=== PATIENT | male | born 1955 | race Caucasian/White ===

== ENCOUNTER 2018-12-01 14:55 | Emergency (ER) | payer OTHER, SELFPAY ==
[2018-12-01 14:59] VITALS: BP 161/83; PULSE 83; RESP 14; TEMP 37.4; O2SAT 99
[2018-12-01 15:31] LABS: Bacteria Urine None Seen
[2018-12-01 15:54] LABS: RBC Urine 30-100/HPF (0-5/HPF)
[2018-12-01 15:55] LABS: Amorphous Sediment Urine 1+; Culture Indicated Urine Cult Not Indicated; Squamous Epithelial Cell Urine 0-1 /HPF; WBC Urine 1-5/HPF (0-5/HPF)
--- NOTE | 2018-12-01 17:04 | ED_ITS ---
HPI - Abdominal Pain <BROCK Sanchez - Last Filed: 12/01/18 22:10> General Chief Complaint: Abdominal Pain Stated Complaint: PAIN ON LOWER LEFT SIDE OF BACK PEEING MORE Time Seen by Provider: 12/01/18 16:50 Source: patient Mode of arrival: ambulatory Limitations: no limitations History of Present Illness HPI narrative: 63-year-old healthy male that is a nonsmoker here for complaint of pain to left flank area over the past week. He also reports having some mild dysuria. He denies any fevers or chills. No nausea vomiting. Last bowel movement was earlier today was unremarkable. He denies any abdominal pain. He denies any stressors or relievers of his pain. He is concerned for urinary tract infection. He states that he is eating and drinking well. No other concerns or complaints at this time. He denies any hematuria. Related Data Previous Rx's Medication Instructions Recorded nitrofurantoin monohyd/m-cryst 100 mg PO BID #14 cap 12/01/18 [Macrobid] Allergies Allergy/AdvReac Type Severity Reaction Status Date / Time No Known Drug Allergies Allergy Verified 12/01/18 15:02 Review of Systems <BROCK Sanchez - Last Filed: 12/01/18 22:10> Constitutional Denies chills, Denies fever(s), Denies lethargy and Denies weakness Eyes Denies change in vision, Denies eye discharge, Denies irritation and Denies loss of vision ENT Ears, Nose, Mouth, and Throat: Denies change in voice, Denies neck pain and Denies sore throat Cardiovascular Denies chest pain, Denies irregular heart rhythm, Denies lightheadedness, Denies palpitations, Denies dyspnea, Denies dyspnea on exertion and Denies orthopnea Respiratory Denies cough, Denies dyspnea, Denies dyspnea on exertion and Denies wheezing Gastrointestinal Gastrointestinal: Denies abdominal pain, Denies change in bowel habits, Denies diarrhea, Denies nausea and Denies vomiting Genitourinary Reports dysuria and Reports flank pain Musculoskeletal Denies neck pain Integumentary/Breasts Denies pruritus, Denies erythema, Denies rash and Denies wounds Neurologic Denies confusion, Denies loss of vision and Denies weakness Psychiatric Denies anxiety, Denies confusion, Denies depression, Denies homicidal ideation and Denies suicidal ideation Endocrine Denies palpitations Hematologic/Lymphatic Denies easy bruising Allergic/Immunologic Denies wheezing Exam <BROCK Sanchez - Last Filed: 12/01/18 22:10> Initial Vital Signs Initial Vital Signs: Vital Signs Temperature 99.4 F 12/01/18 14:59 Pulse Rate 83 12/01/18 14:59 Respiratory Rate 14 12/01/18 14:59 Blood Pressure 161/83 H 12/01/18 14:59 Pulse Oximetry 99 12/01/18 14:59 Const General: cooperative and well developed Nutritional Appearance: well nourished Orientation: alert, awake, oriented x3 and not confused HENWY Mouth: oral mucosae normal and moist mucous membranes Eyes Conjunctivae: conjunctivae normal Sclera: sclerae normal Pupils: PERRL EOM: EOM intact bilaterally Resp Effort & Inspection: normal respiratory effort, able to speak in complete sentences, no respiratory distress and no use of accessory muscles Auscultation: clear to auscultation bilaterally, no rales, no rhonchi and no wheezes Cardio Rate: regular rate Rhythm: regular rhythm Heart Sounds: no click, no gallops, no murmurs and no rubs Pulses: normal peripheral pulses GI Inspection: non-distended Palpation: soft, no hepatosplenomegaly, No guarding, No pulsatile mass and No tender Auscultation: normal bowel sounds General: No CVA tenderness Skin General: no rashes or lesions noted, No jaundice and No petechiae Neuro General: alert, oriented x3, gait normal and no focal motor deficits Speech: speech normal <Patricia Zapata DO - Last Filed: 12/05/18 07:11> Initial Vital Signs Initial Vital Signs: Vital Signs Temperature 99.4 F 12/01/18 14:59 Pulse Rate 83 12/01/18 14:59 Respiratory Rate 14 12/01/18 14:59 Blood Pressure 161/83 H 12/01/18 14:59 Pulse Oximetry 99 12/01/18 14:59 Course <BROCK Sanchez - Last Filed: 12/01/18 22:10> Orders Ordered: ED Orders 12/01/18 15:20 Urine Microscopic Stat Vital Signs - 8 hr 12/01/18 14:59 Temperature 99.4 F Pulse Rate 83 Respiratory Rate 14 Blood Pressure 161/83 H Pulse Oximetry 99 <Patricia Zapata DO - Last Filed: 12/05/18 07:11> Orders Ordered: ED Orders 12/01/18 15:20 Urine Microscopic Stat Vital Signs - 8 hr 12/01/18 14:59 Temperature 99.4 F Pulse Rate 83 Respiratory Rate 14 Blood Pressure 161/83 H Pulse Oximetry 99 MDM - Abdominal Pain <BROCK Sanchez - Last Filed: 12/01/18 22:10> Lab Data Lab Results 12/01/18 Range/Units 15:20 Urine RBC 30-100/hpf H (0-5/HPF) Urine WBC 1-5/hpf (0-5/HPF) Ur Squamous Epith Cells 0-1 /hpf Amorphous Sediment 1+ Urine Bacteria None seen (None) Ur Culture Indicated? Cult not indicated Point of care testing: Urine Dip Bedside Urine Glucose Negative Bedside Urine Bilirubin - Negative Bedside Urine Ketone - Negative Urine Specific Schroeder 1.030 Bedside Urine Occult Blood +++ Bedside Urine pH 5.5 Bedside Urine Protein +/- 15 Bedside Urine Urobilinogen - Negative Bedside Urine Nitrite - Negative Bedside Urine Leukocytes - Negative Esterase MDM Narrative Medical decision making narrative: Urinalysis and micro show positive RBCs and blood. No nitrates or leuko esterase. WBCs are 1-5. Desired to obtain a KUB to rule out kidney stone. However patient refused and would like to follow up with primary care provider patient desires to go home at this timeframe. Patient has concern for urinary tract infection. He is treated empirically for differential diagnoses of urinary tract infection with Macrobid. Follow up with primary care provider in the next few days for re-evaluation. Use [id number] Tylenol as needed for any discomfort. For any worsening sympt oms return to the emergency room. <Patricia Zapata DO - Last Filed: 12/05/18 07:11> Lab Data Lab Results 12/01/18 Range/Units 15:20 Urine RBC 30-100/hpf H (0-5/HPF) Urine WBC 1-5/hpf (0-5/HPF) Ur Squamous Epith Cells 0-1 /hpf Amorphous Sediment 1+ Urine Bacteria None seen (None) Ur Culture Indicated? Cult not indicated Point of care testing: Urine Dip Bedside Urine Glucose Negative Bedside Urine Bilirubin - Negative Bedside Urine Ketone - Negative Urine Specific Schroeder 1.030 Bedside Urine Occult Blood +++ Bedside Urine pH 5.5 Bedside Urine Protein +/- 15 Bedside Urine Urobilinogen - Negative Bedside Urine Nitrite - Negative Bedside Urine Leukocytes - Negative Esterase Discharge Plan Departure Patient Disposition: Home Clinical Impression: Acute left flank pain Discharge Date/Time: 12/01/18 17:21 Interventions: ED Discharge Assessment Last Done: 12/01/18 17:20 Instructions: DI for Flank Pain Activity Restrictions/Additional Instructions: Urinalysis shows blood in your urine. Differential diagnosis between urinary tract infection and kidney stone. recommend obtaining a CT to rule out kidney stone if symptoms do not resolve. You are empirically treated with an antibiotic called Macrobid use as directed. Plenty of fluids. Use [id number] ibuprofen as needed for any discomfort. Follow up with primary care provider in the next couple days for re-evaluation. For any worsening symptoms return to the emergency room. Prescriptions: New nitrofurantoin monohyd/m-cryst [Macrobid] 100 mg capsule 100 mg PO BID Qty: 14 RF: 0 Referrals: [facility] [Provider Group] <Patricia Zapata DO - Last Filed: 12/05/18 07:11> Cosign ED Attending Cosignature Attestation: I was immediately available in the department for consultation. This documentation has been reviewed and I agree with assessment and plan. Supervised by Patricia Zapata DO
== END 2018-12-01 17:21 | disposition home or self-care (01) ==
PROVIDERS: Emergency Medicine; Emergency Provider Nurse Practitioner Family
DX: R10.9 Unspecified abdominal pain (principal)
CPT/HCPCS: 81003; 81015; 99282; 99283